=== PATIENT | female | born 1980 | race Caucasian/White ===

== ENCOUNTER → 2017-09-27 11:49 | Outpatient (REF) | payer SELFPAY ==
[2017-10-01 06:58] LABS: Codeine Negative ng/mL (Cutoff: 25); Dihydrocodeine Negative ng/mL (Cutoff: 25); Hydrocodone Negative ng/mL (Cutoff: 25); Hydromorphone Negative ng/mL (Cutoff: 25); Morphine Negative ng/mL (Cutoff: 25); Naloxone Negative ng/mL (Cutoff: 25); Norhydrocodone Negative ng/mL (Cutoff: 25); Noroxycodone 222 ng/mL (Cutoff: 25); Noroxymorphone Negative ng/mL (Cutoff: 25); Opiates Interpretation Positive.
== END ==
LOC: NCHCN 11:49
PROVIDERS: PCP Family Medicine; Visit Provider Family Medicine
DX: R10.9 Unspecified abdominal pain (principal)
CPT/HCPCS: 80361

== ENCOUNTER 2017-12-27 14:17 | Outpatient (REF) | payer SELFPAY ==
[2017-12-30 17:47] LABS: Codeine Negative ng/mL (Cutoff: 25); Dihydrocodeine Negative ng/mL (Cutoff: 25); Hydrocodone Negative ng/mL (Cutoff: 25); Hydromorphone Negative ng/mL (Cutoff: 25); Morphine Negative ng/mL (Cutoff: 25); Naloxone Negative ng/mL (Cutoff: 25); Norhydrocodone Negative ng/mL (Cutoff: 25); Noroxycodone Negative ng/mL (Cutoff: 25); Noroxymorphone Negative ng/mL (Cutoff: 25); Opiates Interpretation Negative.
== END 2017-12-27 14:37 ==
LOC: NCHCN 14:17
PROVIDERS: PCP Family Medicine; Visit Provider Family Medicine
DX: F11.20 Opioid dependence, uncomplicated (principal); Z51.81 Encounter for therapeutic drug level monitoring
CPT/HCPCS: 80361

== ENCOUNTER 2018-03-31 18:01 | Outpatient (REF) | payer SELFPAY ==
[2018-04-04 09:30] LABS: Codeine Negative ng/mL (Cutoff: 25); Dihydrocodeine 150 ng/mL (Cutoff: 25); Hydrocodone 860 ng/mL (Cutoff: 25); Hydromorphone 180 ng/mL (Cutoff: 25); Morphine Negative ng/mL (Cutoff: 25); Naloxone Negative ng/mL (Cutoff: 25); Norhydrocodone 2039 ng/mL (Cutoff: 25); Noroxycodone Negative ng/mL (Cutoff: 25); Noroxymorphone Negative ng/mL (Cutoff: 25); Opiates Interpretation Positive.
== END 2018-03-31 18:21 ==
LOC: NCHCN 18:01
PROVIDERS: PCP Family Medicine; Visit Provider Family Medicine
DX: Z51.81 Encounter for therapeutic drug level monitoring (principal); F11.20 Opioid dependence, uncomplicated
CPT/HCPCS: 80361

== ENCOUNTER 2018-10-12 21:11 | Outpatient (REF) | payer OTHER, SELFPAY | END 2018-10-12 21:31 | LOC: NCHCN 21:11 | PROVIDERS: PCP Family Medicine; Visit Provider Nurse Practitioner Family | DX: R30.0 Dysuria (principal) | CPT/HCPCS: 87077; 87086; 87186 ==

== ENCOUNTER 2023-08-30 12:51 | Outpatient (REF) | payer SELFPAY ==
[2023-08-30 16:27] LABS: Calculated LDL 93 mg/dL (<100); Cholesterol 152 mg/dL (<200); HDL Cholesterol 52 mg/dL (40-60); TSH (W/Ref FT4) 1.09 uIU/mL (0.36-3.74); Triglyceride 39 mg/dL (<150); Vitamin B12 216 pg/mL (193-986)
[2023-09-07 16:30] LABS: FSH 112.4 mIU/mL (See Note)
== END 2023-08-30 12:52 | disposition home or self-care (01) ==
LOC: NCHCN 12:51
PROVIDERS: PCP Family Medicine; Visit Provider Family Medicine
DX: Z00.00 Encounter for general adult medical examination without abnormal findings (principal)
CPT/HCPCS: 80061; 82607; 83001; 83002; 84443

== ENCOUNTER 2023-12-13 19:29 | Outpatient (REF) | payer SELFPAY ==
[2023-12-13 20:06] LABS: Vitamin B12 361 pg/mL (193-986)
== END 2023-12-13 19:30 | disposition home or self-care (01) ==
LOC: NCHCN 19:29
PROVIDERS: PCP Family Medicine; Visit Provider Family Medicine
DX: E53.9 Vitamin B deficiency, unspecified (principal)
CPT/HCPCS: 82607

== ENCOUNTER 2024-08-30 16:40 | Outpatient (REF) | payer SELFPAY ==
[2024-08-30 19:57] LABS: HCT 41.2 % (36.0-46.0); HGB 14.1 g/dL (11.2-15.7)
[2024-08-30 21:24] LABS: ALT 19 U/L (14-59); AST 16 U/L (15-37); Albumin 4.2 g/dL (3.4-5.0); Alkaline Phosphatase 135 U/L (46-116); Anion Gap 9.5 mmol/L (3-11); BUN 10 mg/dL (7-18); Bilirubin, Total 0.7 mg/dL (0.2-1.0); CO2 27.5 mmol/L (21.0-32.0); Calcium 9.7 mg/dL (8.5-10.1); Chloride 104 mmol/L (98-107); Estimated GFR 93.70 (mL/min/1.73m2); Glucose 123 mg/dL (74-106); Potassium 4.1 mmol/L (3.5-5.1); Sodium 141 mmol/L (136-145); TSH 0.40 uIU/mL (0.36-3.74); Total Protein 7.1 g/dL (6.4-8.2); Vitamin B12 348 pg/mL (193-986)
== END 2024-08-30 16:41 | disposition home or self-care (01) ==
LOC: NCHCN 16:40
PROVIDERS: PCP Family Medicine; Visit Provider Family Medicine
DX: E53.8 Deficiency of other specified B group vitamins (principal); R63.4 Abnormal weight loss
CPT/HCPCS: 80053; 82607; 84443; 85014; 85018